=== PATIENT | male | born 1975 | race Caucasian/White ===

== ENCOUNTER 2024-07-23 11:29 | Emergency (ER) | payer OTHER ==
[~2024-07-23] VITALS: Ht 180.3 cm; Wt 81.8 kg
[2024-07-23 13:40] VITALS: BP 112/70; PULSE 68; RESP 14; TEMP 97.7; O2SAT 99
== END 2024-07-23 13:41 | disposition home or self-care (01) ==
LOC: ER 11:29
DX: S92.411A Displaced fracture of proximal phalanx of right great toe, initial encounter for closed fracture (principal); Z88.1 Allergy status to other antibiotic agents; W18.49XA Other slipping, tripping and stumbling without falling, initial encounter; Y93.89 Activity, other specified; Y92.89 Other specified places as the place of occurrence of the external cause; Y99.0 Civilian activity done for income or pay
CPT/HCPCS: 73630; 99284